=== PATIENT | male | born 1985 | race Caucasian/White ===

== ENCOUNTER 2019-11-12 19:53 | Emergency (ER) | payer OTHER ==
[~2019-11-12] VITALS: Ht 185.4 cm; Wt 74.4 kg
[2019-11-12 20:03] VITALS: BP 123/78
[2019-11-12] MEDS ORDERED: MEDROLDOSEPACK PO (20:24)
[2019-11-12] MEDS ORDERED: FLEXERIL PO (20:24)
== END 2019-11-12 20:47 | disposition home or self-care (01) ==
LOC: M.ERS 19:53
DX: M25.512 Pain in left shoulder (principal); R20.2 Paresthesia of skin; Z88.1 Allergy status to other antibiotic agents

== ENCOUNTER 2020-10-29 10:22 | Emergency (ER) | payer OTHER ==
[~2020-10-29] VITALS: Ht 185.4 cm; Wt 77.1 kg
[~2020-10-29 10:22] MED LIST: FLEXERIL PO; MEDROLDOSEPACK PO
[2020-10-29] MEDS ORDERED: CLARITIN10 M3 PO (10:47)
[2020-10-29] MEDS ORDERED: ALEVE220 MG PO (10:47)
[2020-10-29 11:19] VITALS: BP 132/75
== END 2020-10-29 11:20 | disposition home or self-care (01) ==
LOC: M.ERS 10:22
DX: Z20.822 Contact with and (suspected) exposure to COVID-19 (principal); Z88.1 Allergy status to other antibiotic agents